=== PATIENT | female | born 1990 | race Caucasian/White ===

== ENCOUNTER 2016-07-27 16:36 | Emergency (ER) | payer BC ==
[~2016-07-27] VITALS: Ht 175.3 cm; Wt 64.4 kg
[2016-07-27 16:38] VITALS: TEMP 36.5; Ht 175.3 cm; Wt 64.4 kg
[2016-07-27] MEDS ORDERED: SODIUM CHLORIDE 0.9% 1000ML 1,000 ML IV STA ×2 (17:32→18:24)
[2016-07-27 17:51] LABS: URINE APPEARANCE TURBID (CLEAR); URINE BILIRUBIN NEG (NEG); URINE COLOR YELLOW; URINE EPITHELIAL CELL AUTO >30 /lpf (0-5); URINE NITRITE NEG (NEG); URINE SPECIFIC GRAVITY 1.018 (1.000-1.030); UROBILINOGEN NEG (NEG); ZZUR CULT IF INDIC CLEAN CATCH YES
[2016-07-27 17:54] LABS: BASO % 0.3 %; BASO ABS # 0.02 K/uL (0-0.2); COMPLETE YES; EOS % 0.9 %; HEMATOCRIT 43.6 % (37-47); IG% 0.1 %; LYMPH % 35.8 %; LYMPH ABS # 2.49 K/uL (1.2-3.4); MEAN CELL VOLUME 88.6 fL (80-100); MEAN CORPUSCULAR HEMOGLOBIN 30.7 pg (25-34); MEAN CORPUSCULAR HGB CONC 34.6 g/dl (32-36); MEAN PLATELET VOLUME 9.7 fL (7.4-10.4); NEUT % 55.9 %; PLATELET COUNT 198 K/uL (130-400); RED BLOOD COUNT 4.92 M/uL (4.2-5.4); WHITE BLOOD COUNT 6.96 K/uL (4.8-10.8)
--- NOTE | 2016-07-27 17:57 | DIAGNOSTIC IMAGING REPORT ---
CHEST ONE VIEW PORTABLE CLINICAL HISTORY: syncope COMPARISON STUDY: No previous studies for comparison. FINDINGS: The bones soft tissues and hemidiaphragms are normal. The cardiomediastinal silhouette is normal. The lungs are clear. The pulmonary vasculature is normal. IMPRESSION: Negative chest. Electronically signed by: Raffy Thakur M.D. 07/27/2016 5:56 PM Dictated Date/Time: 07/27/2016 5:56 PM
[2016-07-27 18:09] LABS: MANUAL MICROSCOPIC REQUIRED? NO; REVIEW REQ? YES
[2016-07-27 18:12] LABS: ALT/SGPT 18 U/L (12-78); AST/SGOT 10 U/L (15-37); BLOOD UREA NITROGEN 9 mg/dl (7-18); BUN/CREATININE RATIO 13.6 (10-20); CALCIUM 9.1 mg/dl (8.5-10.1); CARBON DIOXIDE 29 mmol/L (21-32); CHLORIDE 108 mmol/L (98-107); CREATININE 0.64 mg/dl (0.60-1.20); GLUCOSE 82 mg/dl (70-99); MAGNESIUM 2.1 mg/dl (1.8-2.4); POTASSIUM 3.5 mmol/L (3.5-5.1); SODIUM 143 mmol/L (136-145)
--- NOTE | 2016-07-27 18:16 | EMERGENCY ROOM VISIT NOTE ---
History First contact with patient: 17:23 Chief Complaint: DIZZY Stated Complaint: PASSED OUT YESTERDAY,HEADACHE,NAUSEA Nursing Triage Summary: PT reports she was in the shower yesterday and had syncopal episode Pt reports she woke up on the floor of the shower Pt thought she was dehydrated but has felt dizzy all day today History of Present Illness The patient is a 26 year old female who presents to the Emergency Room with complaints of syncope. The patient states that yesterday she was getting a shower and she felt lightheaded and had a syncopal episode. She states that she woke up on the floor admission. She states that she thought she was just dehydrated reports feeling dizzy all day today. She states the dizziness was severe enough that she had to miss work. Patient reports a headache and states this is atypical for her. She rates her discomfort a 4/10. She reports nausea. She denies any neck pain. She denies any pain in her chest or trouble breathing. She denies any numbness, tingling or weakness in the extremities. She denies any abdominal pain. She denies any urinary symptoms. Denies any diarrhea. She denies any chance of . The patient states that she had a syncopal episode and passed and the cause was unknown. Review of Systems A 10 system review of systems was completed with positives and pertinent negatives listed in the HPI. Past Medical/Surgical History Patient denies Social History Smoking Status: Never Smoker Occupation Status: employed Current/Historical Medications No Active Prescriptions or Reported Meds Allergies Coded Allergies: No Known Allergies (Unverified , 07/27/16) Physical Exam Vital Signs Date Time Temp Pulse Resp B/P Pulse Ox O2 Delivery O2 Flow Rate FiO2 07/27/16 19:43 76 20 102/55 98 Room Air 07/27/16 19:42 76 20 102/55 98 Room Air 88 100/60 94 106/63 07/27/16 19:14 62 07/27/16 18:41 71 18 105/65 100 Room Air 07/27/16 17:29 72 16 120/68 98 Room Air 74 101/66 100 102/66 07/27/16 16:38 36.5 82 19 110/72 99 Physical Exam VITALS: Vitals are noted on the nurse's note and reviewed by myself. Vital signs stable. Patient is afebrile. She is not tachycardic or tachypneic. GENERAL: This is a 26-year-old female, in no acute distress, nondiaphoretic, well-developed well-nourished. SKIN: The skin was without rashes, erythema, edema, or bruising. There is no tenting of the skin. Capillary reflex less than 2 seconds. HEAD: Normocephalic atraumatic. EARS: External auditory canals clear, tympanic membranes pearly phelps without erythema or effusion bilaterally. EYES: Pupils equal round and reactive to light and accommodation. Conjunctivae without injection, sclerae without icterus. Extraocular movements intact. NOSE: Patent, turbinates without inflammation or discharge. No sinus tenderness. MOUTH: Mucous membranes moist. Tonsils are not enlarged. Pharynx without erythema or exudate. Uvula midline. Airway patent. Tongue does not deviate. NECK: Supple without nuchal rigidity. No lymphadenopathy. No thyromegaly. Cervical spine is nontender. No JVD. HEART: Regular rate and rhythm without murmurs gallops or rubs. LUNGS: Clear to auscultation bilaterally without wheezes, rales or rhonchi. No retractions or accessory muscle use. ABDOMEN: Positive bowel sounds x 4. Soft, nontender, without masses or organomegaly. MUSCULOSKELETAL: No muscle atrophy, erythema, or edema noted. Full range of motion without joint tenderness in all extremities. No tenderness to palpation. Normal gait. Strength 5/5 throughout. NEURO: Patient was alert and oriented to person place and time. No focal neurological deficits. Medical Decision & Procedures ER Provider Diagnostic Interpretation: CHEST ONE VIEW PORTABLE CLINICAL HISTORY: syncope COMPARISON STUDY: No previous studies for comparison. FINDINGS: The bones soft tissues and hemidiaphragms are normal. The cardiomediastinal silhouette is normal. The lungs are clear. The pulmonary vasculature is normal. IMPRESSION: Negative chest. HEAD CT NONCONTRAST CT DOSE: 537.48 mGy.cm HISTORY: Headache syncope, headache TECHNIQUE: Multiaxial CT images of the head were performed without the use of intravenous contrast. Comparison: None. Findings: The paranasal sinuses and mastoid air cells are clear. The calvarium and skull base are intact. The ventricles and sulci are within normal limits. There is no mass, hematoma, midline shift, or acute infarct. Impression: No acute intracranial abnormality. Laboratory Results 07/27/16 17:40 Red Blood Count 4.92, Mean Corpuscular Volume 88.6, Mean Corpuscular Hemoglobin 30.7, Mean Corpuscular Hemoglobin Concent 34.6, Mean Platelet Volume 9.7, Neutrophils (%) (Auto) 55.9, Lymphocytes (%) (Auto) 35.8, Monocytes (%) (Auto) 7.0, Eosinophils (%) (Auto) 0.9, Basophils (%) (Auto) 0.3, Neutrophils # (Auto) 3.89, Lymphocytes # (Auto) 2.49, Monocytes # (Auto) 0.49, Eosinophils # (Auto) 0.06, Basophils # (Auto) 0.02 07/27/16 17:40 Test 07/27/16 17:19 07/27/16 17:40 Urine Color YELLOW Urine Appearance TURBID (CLEAR) Urine pH 8.0 (4.5-7.5) Urine Specific [place] 1.018 (1.000-1.030) Urine Protein NEG (NEG) Urine Glucose (UA) NEG (NEG) Urine Ketones NEG (NEG) Urine Occult Blood NEG (NEG) Urine Nitrite NEG (NEG) Urine Bilirubin NEG (NEG) Urine Urobilinogen NEG (NEG) Urine Leukocyte Esterase SMALL (NEG) Urine WBC (Auto) 5-10 /hpf (0-5) Urine RBC (Auto) 0-4 /hpf (0-4) Urine Hyaline Casts (Auto) 1-5 /lpf (0-5) Urine Epithelial Cells (Auto) >30 /lpf (0-5) Urine Bacteria (Auto) 2+ (NEG) Urine Crystals AMORPHOUS SEDIMENT (NONE Urine Test NEG (NEG) White Blood Count 6.96 K/uL (4.8-10.8) Red Blood Count 4.92 M/uL (4.2-5.4) Hemoglobin 15.1 g/dL (12.0-16.0) Hematocrit 43.6 % (37-47) Mean Corpuscular Volume 88.6 fL (80-100) Mean Corpuscular Hemoglobin 30.7 pg (25-34) Mean Corpuscular Hemoglobin Concent 34.6 g/dl (32-36) Platelet Count 198 K/uL (130-400) Mean Platelet Volume 9.7 fL (7.4-10.4) Neutrophils (%) (Auto) 55.9 % Lymphocytes (%) (Auto) 35.8 % Monocytes (%) (Auto) 7.0 % Eosinophils (%) (Auto) 0.9 % Basophils (%) (Auto) 0.3 % Neutrophils # (Auto) 3.89 K/uL (1.4-6.5) Lymphocytes # (Auto) 2.49 K/uL (1.2-3.4) Monocytes # (Auto) 0.49 K/uL (0.11-0.59) Eosinophils # (Auto) 0.06 K/uL (0-0.5) Basophils # (Auto) 0.02 K/uL (0-0.2) RDW Standard Deviation 38.5 fL (36.4-46.3) RDW Coefficient of Variation 12.0 % (11.5-14.5) Immature Granulocyte % (Auto) 0.1 % Immature Granulocyte # (Auto) 0.01 K/uL (0.00-0.02) Anion Gap 6.0 mmol/L (3-11) Est Creatinine Clear Calc Drug Dose 137.8 ml/min Estimated GFR () 144.8 Estimated GFR (Non- 124.9 BUN/Creatinine Ratio 13.6 (10-20) Calcium Level 9.1 mg/dl (8.5-10.1) Magnesium Level 2.1 mg/dl (1.8-2.4) Total Bilirubin 0.6 mg/dl (0.2-1) Aspartate Amino Transf (AST/SGOT) 10 U/L (15-37) Alanine Aminotransferase (ALT/SGPT) 18 U/L (12-78) Alkaline Phosphatase 63 U/L (45-117) Troponin I < 0.015 ng/ml (0-0.045) Total Protein 7.0 gm/dl (6.4-8.2) Albumin 3.7 gm/dl (3.4-5.0) Globulin 3.3 gm/dl (2.5-4.0) Albumin/Globulin Ratio 1.1 (0.9-2) Lipase 173 U/L (73-393) Thyroid Stimulating Hormone (TSH) 1.090 uIu/ml (0.300-4.500) Medications Administered Medications (Trade) Dose Ordered Sig/Dena Route Start Time Stop Time Status Last Admin Dose Admin Sodium Chloride 1,000 ml @ 999 mls/hr Q1H1M STAT IV 07/27/16 17:32 07/27/16 18:32 DC 07/27/16 17:49 999 MLS/HR Sodium Chloride (Nss 1000ml) 1,000 ml @ 999 mls/hr Q1H1M STAT IV 07/27/16 18:24 07/27/16 19:24 DC 07/27/16 18:37 999 MLS/HR Acetaminophen (Tylenol Tab) 1,000 mg NOW STAT PO 07/27/16 18:48 07/27/16 18:49 DC 07/27/16 19:19 1,000 MG Procedure The patient was monitored on a quality process engineer. They maintained a normal sinus rhythm without ectopy. ECG Indication: syncope Rate (beats per minute): 63 Rhythm: normal sinus Findings: no acute ischemic change Comparison ECG Date: no prior available ED Course The patient was seen and examined. Previous visits were reviewed. The patient does not have a fever or leukocytosis. She does not have any significant electrolyte abnormality. Troponin was not elevated. Lipase was not elevated. TSH was within normal limits. Urinalysis suggests contamination versus dehydration. test was negative. CT scan of the brain was unremarkable Chest x-ray does not reveal any acute abnormality Initial orthostatic vital signs were positive The patient was hydrated with normal saline 2 L Orthostatic vital signs were repeated and was better. The patient had no dizziness after the IV hydration. The patient presented with an episode of syncope and ongoing dizziness. The patient likely is dehydrated. She was orthostatic and that improved with IV hydration. She does not have any other symptoms.. Urinalysis suggests contamination. She has no urinary symptoms. We will await culture. The patient states her symptoms are markedly improved and she does not have dizziness upon standing after the above treatment. The patient should follow up with her family doctor in 24-48 hours for recheck. She should return to the ER if any worsening symptoms. The case was discussed with Dr. Zavala who agrees with the assessment and treatment plan Medical Decision DIFFERENTIAL DIAGNOSIS: Aortic dissection, myocarditis, pericarditis, cervical disc disease, costochondritis, herpes zoster, rib fracture, pleuritis, pneumonia , pulmonary embolus, tension pneumothorax, anxiety disorder, somatoform disorder , choledocholithiasis, status, esophagitis, esophageal spasm, esophageal reflux , esophageal rupture, pancreatitis, peptic ulcer disease, cardiac ischemia, ST elevation CO, acute coronary syndrome, arrhythmia, coronary artery vasospasm. vavular heart disease, coronary artery disease, intracranial bleeding, skull fracture, intracranial mass, among others. Impression Primary Impression: Dizziness Additional Impressions: Syncope Orthostatic hypotension Departure Information Dispostion Home / Self-Care Condition GOOD Prescriptions No Active Prescriptions or Reported Meds Referrals No Doctor, Assigned (PCP) Patient Instructions ED Hypotension Orthostatic, [facility] [employer] Additional Instructions Increase fluids Return with worsening symptoms Problem Qualifiers Additional Impressions: Syncope Syncope type: unspecified Qualified Codes: R55 - Syncope and collapse
[2016-07-27 18:24] LABS: ALB/GLOB RATIO 1.1 (0.9-2); ALKALINE PHOSPHATASE 63 U/L (45-117)
[2016-07-27] MEDS ORDERED: ACETAMINOPHEN 500 MG TAB PO STA (18:48)
[2016-07-27 19:43] VITALS: BP 102/55; PULSE 76; O2SAT 98
== END 2016-07-27 20:09 | disposition home or self-care (01) ==
LOC: C.EDB 16:37
DX: R42 Dizziness and giddiness (principal); R55 Syncope and collapse; I95.1 Orthostatic hypotension

== ENCOUNTER → 2017-04-08 | Outpatient (CLI) | payer BC | END | disposition home or self-care (01) | LOC: C.LABSPEC 13:21 | PROVIDERS: ATTEND Physician Assistant | DX: Z01.419 Encounter for gynecological examination (general) (routine) without abnormal findings (principal) ==

== ENCOUNTER → 2017-04-08 | Outpatient (CLI) | payer BC | END | disposition home or self-care (01) | LOC: C.PAPS 13:30 | PROVIDERS: ATTEND Physician Assistant | DX: Z01.419 Encounter for gynecological examination (general) (routine) without abnormal findings (principal) ==